=== PATIENT | female | born 1955 | race Caucasian/White ===

== ENCOUNTER 2022-01-19 12:30 | Emergency (ER) | payer OTHER, BC ==
[2022-01-19 12:59] VITALS: BP 138/82; PULSE 104; RESP 19; TEMP 98.3; BMI 24.4
[2022-01-19] MEDS ORDERED: KETOROLAC TROMETHAMINE 30 MG/1 ML VIAL IM ONE (14:11)
[2022-01-19] MEDS ORDERED: ACETAMINOPHEN 500 MG TABLET (FP) PO ONE (14:12)
[2022-01-19] MEDS ORDERED: diazePAM 2 MG TABLET PO ONE (14:12)
[2022-01-19] MEDS ORDERED: diazePAM 2 MG TABLET ONE (14:19)
[2022-01-19] MEDS ORDERED: ACETAMINOPHEN 325 MG TABLET (FP) ONE (14:19)
[2022-01-19] MEDS ORDERED: KETOROLAC TROMETHAMINE 30 MG/1 ML VIAL ONE (14:20)
== END 2022-01-19 14:58 | disposition home or self-care (01) ==
LOC: JERFT 12:30
PROC: 3E0233Z Introduction of Anti-inflammatory into Muscle, Percutaneous Approach (ICD-10-PCS; principal; 2022-01-19)
DX: M54.50 Low back pain, unspecified (principal)
CPT/HCPCS: 99284-25